=== PATIENT | male | born 1985 ===

== ENCOUNTER 2022-08-13 16:43 | Emergency (ER) | payer OTHER ==
[2022-08-13 16:54] VITALS: BP 168/85; PULSE 105; RESP 17; TEMP 97.8; BMI 34.5
[2022-08-13 17:57] LABS: METHADONE, UR NEGATIVE (NEGATIVE); OPIATES, URI NEGATIVE (NEGATIVE); PHENCYCLIDINE,URINE NEGATIVE (NEGATIVE); URINE BENZODIAZEPINES NEGATIVE (NEGATIVE)
[2022-08-13 17:58] LABS: COCAINE, UR NEGATIVE (NEGATIVE); URINE AMPHETAMINES NEGATIVE (NEGATIVE)
[2022-08-13 18:06] LABS: URINE BARBITURATES NEGATIVE (NEGATIVE)
== END 2022-08-13 17:28 | disposition home or self-care (01) ==
LOC: JER 16:43 → JERFT 16:43
DX: Z02.1 Encounter for pre-employment examination (principal)
CPT/HCPCS: 80307; 99281-25